=== PATIENT | female | born 1985 | race Caucasian/White ===

== ENCOUNTER 2025-03-05 10:43 | Outpatient (AMB) | payer OTHER, SELFPAY ==
--- NOTE | 2025-03-05 10:46 | MHC.PC.OV ---
Vital Signs 03/05/25 10:58 Height 5 ft 4.57 in Weight 142 lb BMI 23.9 BP 130/84 Blood Pressure Location Lt brachial Position Sitting Respiration 14 Pulse 80 Pulse Source Pulse Oximeter Pulse Oximetry (%) 99 Oxygen Delivery Method Room Air Intake Visit Reasons: [facility] from [facility] Intake Note: New patient visit Manager [employer] Required: No Allergies amoxicillin Allergy (Severe, Verified 03/05/25 10:52) throat closes up Medication List - Last Reconciled 03/06/25 by Leila Hobbs MD cholecalciferol (vitamin D3) daily rosuvastatin 5 mg PO DAILY Tobacco use date assessed: 03/05/25 Dental Screening Dental Screen Date: 03/05/25 Did you have a dental visit in the last 12 months?: Yes Did you have a dental problem in the last 6 months where you did not have access to dental care?: No Was dental information given to patient?: Patient has dentist HPI HPI Comments History of Present Illness Details The patient is a 39 year old female with a past medical history of abnormal TFTs, heterozygous factor V, hyperlipidemia presenting to [facility] care Hyperlipidemia: on rosuvastatin, co Q10. No SE on current medications [employer]ER-Follows with Dr Jaime Toussaint UTD Believes she is up to date on vaccinations but records have not yet been sent ROS CONSTITUTIONAL: Denies weight loss, fever and chills. HEENT: Denies changes in vision and hearing. RESPIRATORY: Denies SOB and cough. CV: Denies palpitations and CP GI: Denies abdominal pain, nausea, vomiting and diarrhea. : Denies dysuria and urinary frequency. MSK: Denies new myalgia and joint pain. SKIN: Denies rash and pruritus. NEUROLOGICAL: Denies headache PSYCHIATRIC: Denies recent changes in mood. PHYSICAL EXAM: GENERAL: Alert and oriented x 3. NAD EYES: EOMI. Anicteric. HENT: Moist mucous membranes. No scleral icterus. No cervical lymphadenopathy. LUNGS: Clear to auscultation bilaterally. CARDIOVASCULAR: Regular rate and rhythm. No murmur. No JVD. ABDOMEN: Soft, non-tender +bs EXTREMITIES: No edema. Non-tender. SKIN: No rashes or lesions. Warm. NEUROLOGIC: No focal neurological deficits. CN II-XII grossly intact PSYCHIATRIC: Cooperative. 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 Current occupational exposures/hazards: No Cognitive needs: No Hearing needs: No Vision needs: Yes (contacts) Questionnaire Thrive Questionnaire Date Thrive assessed: 02/26/25 I am a: Patient What is your living situation today?: I have a steady place to live Within the past 12 months, did the food you bought not last and you didn't have the money to get more?: Never true Within the past 12 months, did you worry whether your food would run out before you got money to buy more?: Never true Do you have trouble paying for medicines?: No Do you have trouble getting transportation to medical appointments?: No Do you have trouble paying your heating and electricity bill?: No Do you have trouble taking care of your child, family member or friend?: No Do you have trouble with day-to-day activities such as bathing, preparing meals, shopping, managing finances, etc.?: No Are you currently unemployed and looking for a job?: No Are you interested in more education?: No Please select the resources that you would like help with: None Currently or been in a relationship where the following occur: No concerns reported THRIVE Score: 0 AUDIT C Alcohol Use Questionnaire (AUDIT-C) 1. How often do you have a drink containing alcohol?: 2-4 times a month 2. How many drinks containing alcohol do you have on a typical day when you are drinking?: 1 or 2 3. How often do you have six or more drinks on one occasion?: Never Total Score: 2 LAUREN-7 AMB Questionnaire LAUREN-7 Feeling nervous, anxious, or on edge: 0 = Not at all Not being able to stop or control worryin = Not at all Worrying too much about different things: 0 = Not at all Trouble relaxin = Not at all Being so restless that it is hard to sit still: 0 = Not at all Becoming easily annoyed or irritable: 0 = Not at all Feeling afraid as if something awful might happen: 0 = Not at all Total LAUREN-7 score (0-4 normal; 5-9 mild; 10-14 moderate; 15-21 severe): 0 Source: Developed by Drs. Lopez Mayers, Betzy Dan, Mayur Marshall and colleagues, with an educational altaf from [employer]. Physical exam (Primary Care) Vital Signs: Last Vital Signs Pulse 80 03/05/25 10:58 Resp 14 03/05/25 10:58 BP 130/84 03/05/25 10:58 Pulse Ox 99 03/05/25 10:58 Oxygen Delivery Method Room Air 03/05/25 10:58 BMI result Body Mass Index 23.9 Tobacco/Smoking Status: Tobacco use Status Tobacco use date assessed 03/05/25 03/05/25 10:50 Patient Tobacco Use Status Never used Tobacco 03/05/25 10:50 e-Cigarette/Vaping Use Never Used 03/05/25 10:50 Thrive Assessment: Date of Thrive Assessment Date Thrive assessed 02/26/25 03/05/25 10:50 Currently or been in a relationship where the following occur: No concerns reported Coding Level of Care Code New Pt Level 3 (95678) Complex EM visit Add On G2211 Diagnoses Encounter to establish care Z76.89 Hyperlipidemia, unspecified hyperlipidemia type E78.5 Hyperlipidemia type: unspecified Assessment & Plan Assessment & Plan (1) Encounter to establish care: Code(s): Z76.89 - Persons encountering health services in other specified circumstances Category: Medical (2) Hyperlipidemia: Code(s): E78.5 - Hyperlipidemia, unspecified Category: Medical Qualifiers: Hyperlipidemia type: unspecified Qualified Code(s): E78.5 - Hyperlipidemia, unspecified Plan 37 to establish care Past medical, surgical, social and family history reviewed medicaitons reconciled Labs ordered-due prior to annual exam Orders: Orders Comprehensive Met. Panel 8 Months E78.5 - Hyperlipidemia, unspecified, R94.6 - Abnormal results of thyroid function studies, Z13.0 - Encounter for screening for diseases of the blood and blood-forming organs and certain disorders involving the immune mechanism, Z13.228 - Encounter for screening for other metabolic disorders Complete Blood Count Auto Diff 8 Months E78.5 - Hyperlipidemia, unspecified, R94.6 - Abnormal results of thyroid function studies, Z13.0 - Encounter for screening for diseases of the blood and blood-forming organs and certain disorders involving the immune mechanism, Z13.228 - Encounter for screening for other metabolic disorders Lipid Panel 8 Months E78.5 - Hyperlipidemia, unspecified, R94.6 - Abnormal results of thyroid function studies, Z13.0 - Encounter for screening for diseases of the blood and blood-forming organs and certain disorders involving the immune mechanism, Z13.228 - Encounter for screening for other metabolic disorders TSH reflex Free T4 8 Months E78.5 - Hyperlipidemia, unspecified, R94.6 - Abnormal results of thyroid function studies, Z13.0 - Encounter for screening for diseases of the blood and blood-forming organs and certain disorders involving the immune mechanism, Z13.228 - Encounter for screening for other metabolic disorders Medications: New rosuvastatin 5 mg PO DAILY 90 tabs 3RF
[2025-03-05 10:58] VITALS: BP 130/84; PULSE 80; RESP 14; O2SAT 99; BMI 23.9
== END 2025-03-05 11:18 | disposition home or self-care (01) ==
LOC: HO.HMCFM 10:43
PROVIDERS: PCP Internal Medicine; Visit Provider Internal Medicine
DX: Z76.89 Persons encountering health services in other specified circumstances (principal); E78.5 Hyperlipidemia, unspecified